=== PATIENT | female | born 1975 | race Hispanic/Latino ===

== ENCOUNTER 2021-12-18 15:55 | Emergency (ER) | payer MEDICAID ==
[~2021-12-18] VITALS: Ht 165.1 cm; Wt 94.3 kg
[2021-12-18] MEDS ORDERED: IPRATROPIUM/ALBUTEROL SULFATE 3 ML SOLUTION IH ONE (17:00)
[2021-12-18] MEDS ORDERED: DIPHENHYDRAMINE HCL 25 MG CAPSULE PO ONE (17:00)
[2021-12-18] MEDS ORDERED: IBUPROFEN 800 MG TAB PO ONE (17:00)
[2021-12-18 17:13] VITALS: BP 122/68
[2021-12-18] MEDS ORDERED: IBUP-1493 PO (17:42)
[2021-12-18] MEDS ORDERED: LORA-868 PO (17:42)
[2021-12-18] MEDS ORDERED: ALBUHFA IH (17:42)
== END 2021-12-18 18:02 | disposition home or self-care (01) ==
LOC: EDH 15:55
DX: J06.9 Acute upper respiratory infection, unspecified (principal); J45.909 Unspecified asthma, uncomplicated; Z20.822 Contact with and (suspected) exposure to COVID-19; Z79.1 Long term (current) use of non-steroidal anti-inflammatories (NSAID)
CPT/HCPCS: 99284; 71045; 87635; 87804 ×2; 94640; Q0163; C9803